=== PATIENT | male | born 1965 | race Two or more races ===

== ENCOUNTER 2022-07-16 20:49 | Emergency (ER) | payer MEDICAID, OTHER ==
[~2022-07-16] VITALS: Ht 190.5 cm; Wt 111.0 kg
[2022-07-16 21:03] VITALS: BP 156/92
[2022-07-16 21:15] LABS: Basophils # (auto) 0.1 10 ^3/uL (0-0.2); Hemoglobin 9.8 g/dL (13.5-17.5); Lymphocytes # (auto) 1.3 10 ^3/uL (0.4-5.4); Mean Corpuscular Hemoglobin 24.9 pg (28.0-32.0); Neutrophils # (auto) 6.8 10 ^3/uL (1.6-8.6); Red Blood Cells 3.94 10^6/uL (4.5-5.90)
[2022-07-16 21:17] LABS: Basophils % (auto) 1.5 % (0.0-2.0); Eosinophils # (auto) 0.3 10 ^3/uL (0-0.8); Eosinophils % (auto) 3.1 % (0.0-7.0); Hematocrit 29.6 % (41.0-53.0); Mean Corpuscular Hgb Conc. 33.2 g/dL (32.0-36.0); Monocytes # (auto) 0.4 10 ^3/uL (0-1.3); Monocytes % (auto) 4.6 % (0.0-12.0); Neutrophils % (auto) 75.8 % (37.0-80.0)
[2022-07-16 21:29] LABS: INR 0.96 (0.9-1.15); Partial Thromboplastin Time 34.2 sec (24.6-33.4)
[2022-07-16 21:38] LABS: Albumin 2.4 g/dL (3.4-5.0); BUN/Creatinine Ratio 14.6; Bilirubin, Total 0.2 mg/dL (0.2-1.0); Calcium 8.1 mg/dL (8.5-10.1); Magnesium 1.6 mg/dL (1.6-2.6); Total Protein 7.4 g/dL (6.4-8.2)
== END 2022-07-17 04:01 | disposition left against medical advice (07) ==
LOC: ER 20:49 → EDBD 20:49 → ER 07-17 02:30
DX: I10 Essential (primary) hypertension (principal); D64.9 Anemia, unspecified; R68.83 Chills (without fever); E11.9 Type 2 diabetes mellitus without complications
CPT/HCPCS: 36415; 71045; 80053; 83735; 83880; 84484; 85025; 85610; 85730